=== PATIENT | male | born 1980 | race Caucasian/White ===

== ENCOUNTER → 2016-12-10 | Outpatient (CLI) | payer BC ==
[~2016-12-10] VITALS: Ht 180.3 cm; Wt 59.0 kg
[~2016-12-10] MED LIST: ATIVAN0.5 MG PO; BENADRYL25 MG PO; BUSPAR10 MG PO; CATAPRES0.2 MG PO; CIPRO500 MG PO; CLONAZEPAM1 MG PO; CLONIDINE HCL0.1 MG PO; DURAGESIC75 MCG TD; FISH OIL300 MG PO; FLAGYL500 MG PO; IBUPROFEN600 MG PO; INDERAL40 MG PO; KLONOPIN1 MG PO; LANSOPRAZOLE30 MG PO; LIBRIUM25 MG PO; MARINOL2.5 M1 PO; NORCO 5/3251 TABLET PO; OXYCODONE HCL10 MG PO; PREVACID30 MG PO; TRAZODONE HCL100 MG PO; TYLENOL EXTRA500 MG PO; XARELTO10 MG PO; ZESTORETIC,P1 TABLET PO; ZOFRAN8 MG PO
== END | disposition home or self-care (01) ==
LOC: AMB 12-07 11:30
PROC: 0DBE8ZX Excision of Large Intestine, Via Natural or Artificial Opening Endoscopic, Diagnostic (ICD-10-PCS; principal; 2016-12-10)
DX: Z09 Encounter for follow-up examination after completed treatment for conditions other than malignant neoplasm (principal); Z93.3 Colostomy status; Z87.19 Personal history of other diseases of the digestive system; K62.1 Rectal polyp; K21.9 Gastro-esophageal reflux disease without esophagitis; Z87.891 Personal history of nicotine dependence; I10 Essential (primary) hypertension; F41.9 Anxiety disorder, unspecified; F10.10 Alcohol abuse, uncomplicated
CPT/HCPCS: 88305; B4087; J2250; J3010

== ENCOUNTER 2017-04-10 05:19 | Observation (INO) | payer BC ==
[~2017-04-10] VITALS: Ht 182.9 cm; Wt 61.3 kg
[2017-04-10 06:02] LABS: EOSINOPHIL (%) 1.6 % (0-5); EOSINOPHIL COUNT 0.1 K/uL (0-0.3); HEMATOCRIT 37.4 % (38.0-50.0); IMMATURE GRANULOCYTE (%) 0.2 % (0.0-0.7); INSTRUMENT ABS NEUTROPHIL CT 3.8 K/uL; LYMPHOCYTE COUNT 1.2 K/uL (1.0-2.8); MCH 31.3 PG (29.0-34.0); MCHC 36.1 G/DL (30.0-36.0); MEAN PLAT.VOLUME 10.2 uM^3 (9.0-12.4); MONOCYTE (%) 7.7 % (3-12); MONOCYTE COUNT 0.4 K/uL (0-0.8); NEUTROPHIL (%) 68.6 % (45-76); NEUTROPHIL COUNT 3.8 K/uL (1.8-6.4); PLATELET COUNT 181 K/uL (156-360); RBC DIS.WIDTH-CV 11.9 % (11.8-14.6); RBC DIS.WIDTH-SD 38.1 % (39-53); RED BLOOD COUNT 4.31 M/uL (4.00-5.50); WHITE BLOOD COUNT 5.5 K/uL (4.1-10.2)
[2017-04-10 06:11] LABS: CHLORIDE 106 mEq/L (99-109); POTASSIUM 3.8 mEq/L (3.7-5.4); SODIUM 139 mEq/L (136-147)
[2017-04-10 06:13] LABS: GLUCOSE 114 mg/dL (70-99)
[2017-04-10 06:14] LABS: ANION GAP 11 MEQ/L (2-14)
[2017-04-10 06:15] LABS: TOTAL BILIRUBIN 0.7 mg/dL (0.0-1.0)
[2017-04-10 06:16] LABS: ALKALINE PHOSPHATASE 83 IU/L (3-129)
[2017-04-10 06:17] LABS: GFR ESTIMATE (CALCULATED) > 59 mL/min/
[2017-04-10 06:18] LABS: MCV 86.8 FL (86-99); UREA NITROGEN (BUN) 11 mg/dL (9-23)
[2017-04-10 06:20] LABS: INTER. NORMALIZED RATIO 1.2; PROTHROMBIN TIME 12.2 (9.2-11.2); PTT 28.3 (25-32)
[2017-04-10 06:20] LABS: LIPASE 6 U/L (1.0-51.0)
[2017-04-10 07:55] LABS: SERUM ETHYL ALCOHOL < 10 mg/dL
[2017-04-10] MEDS ORDERED: CLONIDINE HCL0.2 MG PO (11:47)
[2017-04-10] MEDS ORDERED: VITAMIN D31000 UNI2 PO (11:48)
[2017-04-10] MEDS ORDERED: ASCORBIC ACID500 M3 PO (11:48)
[2017-04-10 13:30] VITALS: BP 115/78
[2017-04-10 14:04] LABS: AMYLASE 37 IU/L (1-118); SAMPLE HEMOLYSIS CHECK 0; SAMPLE ICTERIC CHECK 0; SAMPLE LIPEMIA CHECK 0
[2017-04-10 17:16] VITALS: BP 118/73
[2017-04-10 23:39] VITALS: BP 111/59
[2017-04-11 05:33] LABS: HEMATOCRIT 34.2 % (38.0-50.0); MCH 30.3 PG (29.0-34.0); MCHC 33.6 G/DL (30.0-36.0); MEAN PLAT.VOLUME 10.2 uM^3 (9.0-12.4); PLATELET COUNT 141 K/uL (156-360); RBC DIS.WIDTH-CV 12.2 % (11.8-14.6); RBC DIS.WIDTH-SD 39.8 % (39-53); WHITE BLOOD COUNT 5.3 K/uL (4.1-10.2)
[2017-04-11 07:48] VITALS: BP 115/79
== END 2017-04-11 10:23 | disposition home or self-care (01) ==
LOC: EME 05:19 → EDOF 10:25 → 3EAST 10:25 → EDOF 10:25 → 3EAST 13:13
PROVIDERS: Emergency Medicine; Specialist
DX: K92.2 Gastrointestinal hemorrhage, unspecified (principal); R10.9 Unspecified abdominal pain; K21.9 Gastro-esophageal reflux disease without esophagitis; Z87.891 Personal history of nicotine dependence; F41.9 Anxiety disorder, unspecified; E44.0 Moderate protein-calorie malnutrition; R13.10 Dysphagia, unspecified; E78.5 Hyperlipidemia, unspecified; I10 Essential (primary) hypertension; I47.1 Supraventricular tachycardia; Z93.0 Tracheostomy status; Z93.2 Ileostomy status; F11.20 Opioid dependence, uncomplicated
CPT/HCPCS: 74177; 76705; 80053; 82150; 83690; 85025; 85027; 85610; 85730; 86900; 86901; 99281; 99285; C9113; G0378; G0480; J2270; J2405; J3010; J7030

== ENCOUNTER 2017-06-06 00:48 | Inpatient (IN) | payer BC ==
[~2017-06-06] VITALS: Ht 182.9 cm; Wt 64.0 kg
[~2017-06-06 00:48] MED LIST changes: +ASCORBIC ACID500 M3 PO; +CLONIDINE HCL0.2 MG PO; +VITAMIN D31000 UNI2 PO
[2017-06-06 01:53] LABS: HEMATOCRIT 35.3 % (38.0-50.0); MCH 31.1 PG (29.0-34.0); MCHC 34.8 G/DL (30.0-36.0); MCV 89.4 FL (86-99); MEAN PLAT.VOLUME 9.7 uM^3 (9.0-12.4); PLATELET COUNT 155 K/uL (156-360); RBC DIS.WIDTH-CV 12.2 % (11.8-14.6); RBC DIS.WIDTH-SD 40.1 % (39-53); RED BLOOD COUNT 3.95 M/uL (4.00-5.50); WHITE BLOOD COUNT 8.8 K/uL (4.1-10.2)
[2017-06-06 01:58] LABS: EOSINOPHIL (%) 2.7 % (0-5); EOSINOPHIL COUNT 0.2 K/uL (0-0.3); IMMATURE GRANULOCYTE (%) 0.4 % (0.0-0.7); INSTRUMENT ABS NEUTROPHIL CT 6.7 K/uL; LYMPHOCYTE COUNT 1.2 K/uL (1.0-2.8); MONOCYTE (%) 8.1 % (3-12); MONOCYTE COUNT 0.7 K/uL (0-0.8); NEUTROPHIL (%) 74.8 % (45-76); NEUTROPHIL COUNT 6.7 K/uL (1.8-6.4)
[2017-06-06 02:00] LABS: ADD MIUA? NO; BILIRUBIN NEGATIVE; BLOOD NEGATIVE; COLOR YELLOW ((YELLOW)); GLUCOSE (STRIP) NEGATIVE; KETONES NEGATIVE; LEUKOCYTES NEGATIVE; NITRITE NEGATIVE; PROTEIN (STRIP) 30; SPECIFIC GRAVITY 1.025 (1.000-1.030); UCUL ADDED? NO; UROBILINOGEN 0.2 MG/DL (0.2-1.0)
[2017-06-06 02:10] LABS: CHLORIDE 104 mEq/L (99-109); POTASSIUM 3.7 mEq/L (3.7-5.4); SODIUM 136 mEq/L (136-147)
[2017-06-06 02:12] LABS: GLUCOSE 97 mg/dL (70-99)
[2017-06-06 02:14] LABS: ANION GAP 9 MEQ/L (2-14); TOTAL BILIRUBIN 0.2 mg/dL (0.0-1.0)
[2017-06-06 02:16] LABS: ALKALINE PHOSPHATASE 75 IU/L (3-129); GFR ESTIMATE (CALCULATED) > 59 mL/min/
[2017-06-06 02:17] LABS: UREA NITROGEN (BUN) 22 mg/dL (9-23)
[2017-06-06 02:19] LABS: LIPASE 837 U/L (1.0-51.0)
[2017-06-06 06:02] VITALS: BP 134/87
[2017-06-06 08:42] VITALS: BP 132/83
[2017-06-06 11:59] VITALS: BP 131/83
[2017-06-06] MEDS ORDERED: DURAGESIC50 MCG TD (12:55)
[2017-06-06 17:23] VITALS: BP 133/86
[2017-06-06 19:59] VITALS: BP 119/80
[2017-06-06 23:37] VITALS: BP 123/79
[2017-06-06 23:41] LABS: SAMPLE HEMOLYSIS CHECK 0; SAMPLE ICTERIC CHECK 0; SAMPLE LIPEMIA CHECK 0
[2017-06-06 23:47] LABS: TRIGLYCERIDES 116 MG/DL (Normal: <150)
[2017-06-07 04:56] VITALS: BP 133/83
[2017-06-07 06:42] LABS: EOSINOPHIL COUNT 0.2 K/uL (0-0.3); HEMATOCRIT 35.5 % (38.0-50.0); IMMATURE GRANULOCYTE (%) 0.8 % (0.0-0.7); IMMATURE GRANULOCYTE COUNT 0.1 K/uL; INSTRUMENT ABS NEUTROPHIL CT 5.1 K/uL; LYMPHOCYTE COUNT 0.7 K/uL (1.0-2.8); MCH 31.8 PG (29.0-34.0); MCHC 35.2 G/DL (30.0-36.0); MCV 90.3 FL (86-99); MONOCYTE (%) 7.5 % (3-12); MONOCYTE COUNT 0.5 K/uL (0-0.8); NEUTROPHIL (%) 77.3 % (45-76); NEUTROPHIL COUNT 5.1 K/uL (1.8-6.4); RBC DIS.WIDTH-CV 12.2 % (11.8-14.6); RBC DIS.WIDTH-SD 40.2 % (39-53); RED BLOOD COUNT 3.93 M/uL (4.00-5.50); WHITE BLOOD COUNT 6.6 K/uL (4.1-10.2)
[2017-06-07 06:52] LABS: ALKALINE PHOSPHATASE 85 IU/L (3-129); ANION GAP 13 MEQ/L (2-14); CHLORIDE 104 MEQ/L (99-109); GFR ESTIMATE (CALCULATED) > 59 mL/min/; GLUCOSE 65 mg/dL (70-99); LIPASE 426 U/L (1.0-51.0); POTASSIUM 3.7 MEQ/L (3.7-5.4); SAMPLE HEMOLYSIS CHECK 1; SAMPLE ICTERIC CHECK 0; SAMPLE LIPEMIA CHECK 0; SODIUM 138 MEQ/L (136-147); TOTAL BILIRUBIN 0.8 MG/DL (0.0-1.0); UREA NITROGEN (BUN) 10 mg/dL (9-23)
[2017-06-07 08:07] VITALS: BP 133/88
[2017-06-07 08:47] LABS: HEMATOLOGY COMMENT 1 SMEAR COMPATIBLE; MEAN PLAT.VOLUME 10.2 uM^3 (9.0-12.4); PLAT.SUFFICIENCY DECREASED
[2017-06-07 08:52] LABS: PLATELET COUNT 107 K/uL (156-360)
[2017-06-07 11:54] VITALS: BP 137/92
[2017-06-07 16:19] VITALS: BP 140/93
[2017-06-07 19:53] VITALS: BP 147/89
[2017-06-07 23:41] VITALS: BP 146/92
[2017-06-08 03:53] VITALS: BP 142/86
[2017-06-08 06:37] LABS: MCH 30.9 PG (29.0-34.0); MCHC 34.9 G/DL (30.0-36.0); MCV 88.6 FL (86-99); MEAN PLAT.VOLUME 9.7 uM^3 (9.0-12.4); PLATELET COUNT 113 K/uL (156-360); RBC DIS.WIDTH-CV 11.9 % (11.8-14.6); RBC DIS.WIDTH-SD 38.2 % (39-53); RED BLOOD COUNT 3.95 M/uL (4.00-5.50); WHITE BLOOD COUNT 7.9 K/uL (4.1-10.2)
[2017-06-08 08:01] VITALS: BP 142/89
[2017-06-08 16:30] VITALS: BP 133/88
[2017-06-08 20:09] VITALS: BP 134/88
[2017-06-09 00:21] VITALS: BP 132/87
[2017-06-09 03:54] VITALS: BP 123/81
[2017-06-09 06:35] LABS: HEMATOCRIT 32.9 % (38.0-50.0); MCH 31.9 PG (29.0-34.0); MCHC 35.9 G/DL (30.0-36.0); MCV 88.9 FL (86-99); PLATELET COUNT 113 K/uL (156-360); RBC DIS.WIDTH-CV 12.1 % (11.8-14.6); RBC DIS.WIDTH-SD 38.9 % (39-53); WHITE BLOOD COUNT 3.7 K/uL (4.1-10.2)
[2017-06-09 07:07] LABS: ALKALINE PHOSPHATASE 92 IU/L (3-129); DIRECT BILIRUBIN 0.1 mg/dL (0.0-0.3); LIPASE 362 U/L (1.0-51.0)
[2017-06-09 07:10] LABS: TOTAL BILIRUBIN 0.4 MG/DL (0.0-1.0)
== END 2017-06-09 07:26 | disposition short-term general hospital (02) | DRG 439 ==
LOC: EME 00:48 → 3EAST 04:18 → EDOF 04:18 → 3EAST 05:47
PROVIDERS: Internal Medicine Gastroenterology; Specialist
DX: K85.90 Acute pancreatitis without necrosis or infection, unspecified (principal); I95.9 Hypotension, unspecified; E44.0 Moderate protein-calorie malnutrition; D69.6 Thrombocytopenia, unspecified; R18.8 Other ascites; F11.20 Opioid dependence, uncomplicated; Z86.74 Personal history of sudden cardiac arrest; D64.9 Anemia, unspecified; M25.511 Pain in right shoulder; E78.5 Hyperlipidemia, unspecified; G89.29 Other chronic pain; F41.9 Anxiety disorder, unspecified; I10 Essential (primary) hypertension; I25.10 Atherosclerotic heart disease of native coronary artery without angina pectoris; K21.9 Gastro-esophageal reflux disease without esophagitis; K43.9 Ventral hernia without obstruction or gangrene; K80.10 Calculus of gallbladder with chronic cholecystitis without obstruction; K86.1 Other chronic pancreatitis; R13.10 Dysphagia, unspecified; Z68.1 Body mass index [BMI] 19.9 or less, adult; Z87.891 Personal history of nicotine dependence; Z79.899 Other long term (current) drug therapy; R10.11 Right upper quadrant pain; R63.0 Anorexia; Z93.2 Ileostomy status
CPT/HCPCS: 74177; 76705; 80053; 80076; 81003; 83690; 84478; 85025; 85027; 99281; 99285; C9113; J0692; J1170; J1650; J2060; J2270; J2405; J2765; J7030; J7050

== ENCOUNTER 2017-07-25 17:03 | Inpatient (IN) | payer BC ==
[~2017-07-25] VITALS: Ht 182.9 cm; Wt 69.6 kg
[~2017-07-25 17:03] MED LIST changes: +DURAGESIC50 MCG TD; -OXYCODONE HCL10 MG PO; +OXYCODONE HCL20 M1 PO; +ZOFRAN4 MG PO; -ZOFRAN8 MG PO
[2017-07-25 17:51] LABS: EOSINOPHIL (%) 2.9 % (0-5); EOSINOPHIL COUNT 0.4 K/uL (0-0.3); HEMATOCRIT 25.1 % (38.0-50.0); IMMATURE GRANULOCYTE (%) 0.4 % (0.0-0.7); IMMATURE GRANULOCYTE COUNT 0.1 K/uL; INSTRUMENT ABS NEUTROPHIL CT 11.3 K/uL; LYMPHOCYTE COUNT 0.8 K/uL (1.0-2.8); MCH 28.8 PG (29.0-34.0); MCHC 32.3 G/DL (30.0-36.0); MCV 89.3 FL (86-99); MEAN PLAT.VOLUME 8.8 uM^3 (9.0-12.4); MONOCYTE (%) 7.8 % (3-12); MONOCYTE COUNT 1.1 K/uL (0-0.8); NEUTROPHIL COUNT 11.3 K/uL (1.8-6.4); PLATELET COUNT 336 K/uL (156-360); RBC DIS.WIDTH-CV 14.9 % (11.8-14.6); RBC DIS.WIDTH-SD 49.1 % (39-53); RED BLOOD COUNT 2.81 M/uL (4.00-5.50); WHITE BLOOD COUNT 13.6 K/uL (4.1-10.2)
[2017-07-25 17:58] LABS: CHLORIDE 102 mEq/L (99-109); POTASSIUM 3.6 mEq/L (3.7-5.4); SODIUM 139 mEq/L (136-147)
[2017-07-25 18:01] LABS: GLUCOSE 105 mg/dL (70-99)
[2017-07-25 18:02] LABS: ANION GAP 10 MEQ/L (2-14)
[2017-07-25 18:03] LABS: TOTAL BILIRUBIN 0.2 mg/dL (0.0-1.0)
[2017-07-25 18:04] LABS: ALKALINE PHOSPHATASE 152 IU/L (3-129); GFR ESTIMATE (CALCULATED) > 59 mL/min/
[2017-07-25 18:05] LABS: UREA NITROGEN (BUN) 9 mg/dL (9-23)
[2017-07-25] MEDS ORDERED: DIAZEPAM2 MG PO (22:26)
[2017-07-25] MEDS ORDERED: CIPRO500 MG PO (22:27)
[2017-07-25] MEDS ORDERED: NYSTATIN-TRIAMC15 GM TP (22:27)
[2017-07-26 00:32] VITALS: BP 108/65
[2017-07-26 02:18] LABS: METH RESISTANT S AUREUS PCR POSITIVE (NEGATIVE)
[2017-07-26 02:46] LABS: PROBE CHECK PASS
[2017-07-26 06:24] LABS: EOSINOPHIL (%) 3.4 % (0-5); EOSINOPHIL COUNT 0.4 K/uL (0-0.3); HEMATOCRIT 23.1 % (38.0-50.0); IMMATURE GRANULOCYTE (%) 0.5 % (0.0-0.7); IMMATURE GRANULOCYTE COUNT 0.1 K/uL; INSTRUMENT ABS NEUTROPHIL CT 8.8 K/uL; LYMPHOCYTE COUNT 0.7 K/uL (1.0-2.8); MCHC 30.7 G/DL (30.0-36.0); MCV 90.9 FL (86-99); MEAN PLAT.VOLUME 9.3 uM^3 (9.0-12.4); MONOCYTE (%) 7.9 % (3-12); MONOCYTE COUNT 0.9 K/uL (0-0.8); NEUTROPHIL (%) 81.7 % (45-76); NEUTROPHIL COUNT 8.8 K/uL (1.8-6.4); PLATELET COUNT 298 K/uL (156-360); RBC DIS.WIDTH-CV 15.3 % (11.8-14.6); RBC DIS.WIDTH-SD 51.8 % (39-53); RED BLOOD COUNT 2.54 M/uL (4.00-5.50); WHITE BLOOD COUNT 10.7 K/uL (4.1-10.2)
[2017-07-26 06:52] LABS: ANION GAP 9 MEQ/L (2-14); CHLORIDE 110 MEQ/L (99-109); GFR ESTIMATE (CALCULATED) > 59 mL/min/; GLUCOSE 104 mg/dL (70-99); POTASSIUM 3.5 MEQ/L (3.7-5.4); SAMPLE HEMOLYSIS CHECK 0; SAMPLE ICTERIC CHECK 0; SAMPLE LIPEMIA CHECK 0; SODIUM 143 MEQ/L (136-147); UREA NITROGEN (BUN) 6 mg/dL (9-23)
[2017-07-26 07:27] VITALS: BP 98/60
[2017-07-26 08:26] LABS: INTER. NORMALIZED RATIO 1.4; PROTHROMBIN TIME 15.1 SEC (10.2-12.9)
[2017-07-26 08:29] LABS: PTT 43.8 SEC (25-37)
[2017-07-26 11:38] VITALS: BP 112/62
== END 2017-07-26 13:19 | disposition short-term general hospital (02) | DRG 863 ==
LOC: EME 17:03 → EDOF 21:46 → ENRESERV 22:06 → 5EAST 07-26 00:13
PROVIDERS: Family Medicine; Physician Assistant; Radiology Diagnostic Radiology
DX: K68.11 Postprocedural retroperitoneal abscess (principal); I10 Essential (primary) hypertension; D64.9 Anemia, unspecified; K21.9 Gastro-esophageal reflux disease without esophagitis; F41.9 Anxiety disorder, unspecified; G89.29 Other chronic pain; Z90.49 Acquired absence of other specified parts of digestive tract
CPT/HCPCS: 74177; 80048; 80053; 81003; 83605; 85025; 85610; 85730; 87040; 87641; 99281; 99285; J1200; J2270; J2405; J2543; J3010; J7030; J7050; S0030

== ENCOUNTER 2017-09-18 20:58 | Inpatient (IN) | payer BC ==
[~2017-09-18] VITALS: Ht 182.9 cm; Wt 56.5 kg
[~2017-09-18 20:58] MED LIST changes: +DIAZEPAM2 MG PO; +NYSTATIN-TRIAMC15 GM TP
[2017-09-18 21:34] LABS: HEMATOCRIT 44.9 % (38.0-50.0); MCH 28.3 PG (29.0-34.0); MEAN PLAT.VOLUME 8.9 uM^3 (9.0-12.4); PLATELET COUNT 343 K/uL (156-360); RBC DIS.WIDTH-CV 14.2 % (11.8-14.6); RBC DIS.WIDTH-SD 41.1 % (39-53); RED BLOOD COUNT 5.54 M/uL (4.00-5.50); WHITE BLOOD COUNT 9.4 K/uL (4.1-10.2)
[2017-09-18 21:42] LABS: CHLORIDE 96 mEq/L (99-109); POTASSIUM 4.1 mEq/L (3.7-5.4); SODIUM 136 mEq/L (136-147)
[2017-09-18 21:45] LABS: GLUCOSE 113 mg/dL (70-99)
[2017-09-18 21:46] LABS: ANION GAP 22 MEQ/L (2-14)
[2017-09-18 21:47] LABS: TOTAL BILIRUBIN 0.6 mg/dL (0.0-1.0)
[2017-09-18 21:48] LABS: ALKALINE PHOSPHATASE 195 IU/L (3-129); GFR ESTIMATE (CALCULATED) > 59 mL/min/
[2017-09-18 21:49] LABS: UREA NITROGEN (BUN) 19 mg/dL (9-23)
[2017-09-18 21:52] LABS: LIPASE 15 U/L (1.0-51.0)
[2017-09-19] MEDS ORDERED: CLONIDINE HCL0.2 MG PO (01:06)
[2017-09-19] MEDS ORDERED: TIZANIDINE HCL4 MG PO (01:06)
[2017-09-19] MEDS ORDERED: FLINTSTONES1 EACH PO (01:07)
[2017-09-19] MEDS ORDERED: DRONABINOL2.5 MG PO (01:07)
[2017-09-19] MEDS ORDERED: TUMS500 MG PO (01:08)
[2017-09-19 15:10] LABS: INFLUENZA A VIRAL ANTIGEN NEGATIVE; INFLUENZA B VIRAL ANTIGEN NEGATIVE
[2017-09-19 15:50] LABS: METH RESISTANT S AUREUS PCR NEGATIVE (NEGATIVE)
[2017-09-19 15:53] LABS: PROBE CHECK PASS; SPECIMEN PROCESSING CONTROL PASS
[2017-09-19 16:20] VITALS: BP 128/84
[2017-09-19 20:18] VITALS: BP 134/84
[2017-09-20 00:05] VITALS: BP 120/78
[2017-09-20 04:30] VITALS: BP 114/69
[2017-09-20 06:09] LABS: C DIFF TOXIN NEGATIVE (NEGATIVE)
[2017-09-20 06:11] LABS: PROBE CHECK PASS; SPECIMEN PROCESSING CONTROL PASS
[2017-09-20 07:10] LABS: ALKALINE PHOSPHATASE 113 IU/L (3-129); DIRECT BILIRUBIN 0.1 mg/dL (0.0-0.3); TOTAL BILIRUBIN 0.3 MG/DL (0.0-1.0)
[2017-09-20 08:25] VITALS: BP 128/82
[2017-09-20 09:50] LABS: HEMATOCRIT 35.7 % (38.0-50.0); MCH 29.2 PG (29.0-34.0); MCHC 33.9 G/DL (30.0-36.0); RBC DIS.WIDTH-CV 14.6 % (11.8-14.6); RBC DIS.WIDTH-SD 43.9 % (39-53); WHITE BLOOD COUNT 6.7 K/uL (4.1-10.2)
[2017-09-20 09:54] LABS: RED BLOOD COUNT 4.15 M/uL (4.00-5.50)
[2017-09-20 09:54] LABS: ANION GAP 12 MEQ/L (2-14); CHLORIDE 105 MEQ/L (99-109); GLUCOSE 102 mg/dL (70-99); SODIUM 138 MEQ/L (136-147); UREA NITROGEN (BUN) 6 mg/dL (9-23)
[2017-09-20 10:05] LABS: GFR ESTIMATE (CALCULATED) > 59 mL/min/; POTASSIUM 3.2 MEQ/L (3.7-5.4)
[2017-09-20 10:12] LABS: MEAN PLAT.VOLUME 10.2 uM^3 (9.0-12.4)
[2017-09-20 10:16] LABS: PLATELET COUNT 179 K/uL (156-360)
[2017-09-20 23:58] VITALS: BP 118/74
[2017-09-21 08:39] VITALS: BP 133/93
[2017-09-21 11:28] VITALS: BP 133/84
[2017-09-21] MEDS ORDERED: CEFTIN500 MG PO (12:38)
[2017-09-21] MEDS ORDERED: METRONIDAZOLE500 MG PO (12:39)
[2017-09-21] MEDS ORDERED: AZITHROMYCIN500 M1 PO (12:39)
[2017-09-21] MEDS ORDERED: BENTYL20 MG PO (12:39)
[2017-09-21] MEDS ORDERED: CHOLESTYRAMINE P4 GM PO (12:40)
[2017-09-21] MEDS ORDERED: CLONIDINE HCL0.1 MG PO (12:41)
[2017-09-21] MEDS ORDERED: LOPERAMIDE2 MG PO (12:43)
[2017-09-21] MEDS ORDERED: PANTOPRAZOLE SO40 MG PO (12:44)
[2017-09-21] MEDS ORDERED: DIAZEPAM5 MG PO (12:44)
[2017-09-27 09:01] LABS: RESEND RESULTS RESEND RESULTS
== END 2017-09-21 14:26 | disposition home or self-care (01) | DRG 194 ==
LOC: EME 20:58 → EDOF 09-19 02:10 → 3EAST 09-19 02:10 → ENRESERV 09-19 02:18 → 3EAST 09-19 12:58
PROVIDERS: Family Medicine; Physician Assistant; Specialist
DX: J18.9 Pneumonia, unspecified organism (principal); K91.2 Postsurgical malabsorption, not elsewhere classified; K86.1 Other chronic pancreatitis; R13.10 Dysphagia, unspecified; Z68.1 Body mass index [BMI] 19.9 or less, adult; K52.9 Noninfective gastroenteritis and colitis, unspecified; K21.0 Gastro-esophageal reflux disease with esophagitis; G89.4 Chronic pain syndrome; I10 Essential (primary) hypertension; F41.9 Anxiety disorder, unspecified; R79.89 Other specified abnormal findings of blood chemistry; E78.5 Hyperlipidemia, unspecified; K29.70 Gastritis, unspecified, without bleeding; I25.10 Atherosclerotic heart disease of native coronary artery without angina pectoris; F10.11 Alcohol abuse, in remission; Z90.49 Acquired absence of other specified parts of digestive tract; Z86.73 Personal history of transient ischemic attack (TIA), and cerebral infarction without residual deficits
CPT/HCPCS: 71020; 74177; 80048; 80053; 80076; 83605; 83690; 85027; 87040; 87046; 87177; 87329; 87493; 87502; 87506; 87641; 88305; 88342 TC; 89125; 90686; 94640; 94640 76; 99202; 99281; 99285; C9113; J1170; J1200; J1956; J2250; J2270; J2405; J2765; J3010; J7030; J7050; Q0167; S0028

== ENCOUNTER 2017-10-06 18:15 | Inpatient (IN) | payer BC ==
[~2017-10-06] VITALS: Ht 182.9 cm; Wt 56.1 kg
[~2017-10-06 18:15] MED LIST changes: +AZITHROMYCIN500 M1 PO; +BENTYL20 MG PO; +CEFTIN500 MG PO; +CHOLESTYRAMINE P4 GM PO; +DIAZEPAM5 MG PO; +DRONABINOL2.5 MG PO; +FLINTSTONES1 EACH PO; +LOPERAMIDE2 MG PO; +METRONIDAZOLE500 MG PO; +PANTOPRAZOLE SO40 MG PO; +TIZANIDINE HCL4 MG PO; +TUMS500 MG PO
[2017-10-06 19:15] LABS: HEMATOCRIT 41.5 % (38.0-50.0); MCH 28.3 PG (29.0-34.0); MCHC 33.7 G/DL (30.0-36.0); MCV 83.8 FL (86-99); MEAN PLAT.VOLUME 9.6 uM^3 (9.0-12.4); PLATELET COUNT 173 K/uL (156-360); RBC DIS.WIDTH-CV 15.3 % (11.8-14.6); RBC DIS.WIDTH-SD 46.5 % (39-53); RED BLOOD COUNT 4.95 M/uL (4.00-5.50)
[2017-10-06 19:24] LABS: CHLORIDE 101 mEq/L (99-109); POTASSIUM 3.6 mEq/L (3.7-5.4); SODIUM 138 mEq/L (136-147)
[2017-10-06 19:26] LABS: GLUCOSE 102 mg/dL (70-99)
[2017-10-06 19:27] LABS: ANION GAP 13 MEQ/L (2-14)
[2017-10-06 19:28] LABS: TOTAL BILIRUBIN 0.7 mg/dL (0.0-1.0)
[2017-10-06 19:30] LABS: ALKALINE PHOSPHATASE 115 IU/L (3-129); GFR ESTIMATE (CALCULATED) > 59 mL/min/
[2017-10-06 19:31] LABS: UREA NITROGEN (BUN) 10 mg/dL (9-23)
[2017-10-06 19:32] LABS: ADD MIUA? YES; BILIRUBIN NEGATIVE; BLOOD NEGATIVE; COLOR YELLOW ((YELLOW)); GLUCOSE (STRIP) NEGATIVE; KETONES 20; LEUKOCYTES NEGATIVE; NITRITE NEGATIVE; PROTEIN (STRIP) 30; SPECIFIC GRAVITY 1.019 (1.000-1.030); UROBILINOGEN 0.2 MG/DL (0.2-1.0)
[2017-10-06 19:33] LABS: LIPASE 4 U/L (1.0-51.0)
[2017-10-06 19:38] LABS: BACTERIA RARE /HPF; CALCIUM OXALATE CRYSTALS 2+ /HPF; HYALINE CASTS 0-5 /LPF
[2017-10-06 20:04] LABS: RED BLOOD CELLS RARE /HPF (0-5); UCUL ADDED? NO; WHITE BLOOD CELLS 0-5 /HPF (0-5)
[2017-10-06 20:05] LABS: EPITHELIAL CELLS RARE /HPF; MUCUS 3+ /LPF
[2017-10-06 20:06] LABS: CASTS PRESENT /LPF; CRYSTALS PRESENT
[2017-10-06] MEDS ORDERED: OXYCODONE HCL10 MG PO (23:10)
[2017-10-06] MEDS ORDERED: PROTONIX40 MG PO (23:10)
[2017-10-07] VITALS (7 sets, daily range): BP systolic 109–135; BP diastolic 65–95
[2017-10-07] MEDS ORDERED: VALIUM5 MG PO (00:53)
[2017-10-08 03:55] LABS: C DIFF TOXIN NEGATIVE (NEGATIVE)
[2017-10-08 03:57] LABS: PROBE CHECK PASS; SPECIMEN PROCESSING CONTROL PASS
[2017-10-08 07:30] LABS: TROP-I INTERPRETATION NEGATIVE; TROPONIN-I < 0.01 ng/mL (0.0-0.30)
[2017-10-08 07:37] LABS: HEMATOCRIT 35.4 % (38.0-50.0); HEMATOLOGY COMMENT 1 SN; MCHC 33.1 G/DL (30.0-36.0); MCV 84.7 FL (86-99); MEAN PLAT.VOLUME 9.1 uM^3 (9.0-12.4); PLAT.SUFFICIENCY DECREASED; RBC DIS.WIDTH-CV 15.1 % (11.8-14.6); RBC DIS.WIDTH-SD 46.5 % (39-53); RED BLOOD COUNT 4.18 M/uL (4.00-5.50); WHITE BLOOD COUNT 2.6 K/uL (4.1-10.2)
[2017-10-08 07:39] LABS: PLATELET COUNT 103 K/uL (156-360)
[2017-10-08 07:44] LABS: ALKALINE PHOSPHATASE 104 IU/L (3-129); ANION GAP 7 MEQ/L (2-14); CHLORIDE 107 MEQ/L (99-109); GFR ESTIMATE (CALCULATED) > 59 mL/min/; GLUCOSE 94 mg/dL (70-99); POTASSIUM 3.7 MEQ/L (3.7-5.4); SAMPLE HEMOLYSIS CHECK 0; SAMPLE ICTERIC CHECK 0; SAMPLE LIPEMIA CHECK 0; SODIUM 137 MEQ/L (136-147); TOTAL BILIRUBIN 0.4 MG/DL (0.0-1.0); UREA NITROGEN (BUN) 8 mg/dL (9-23)
[2017-10-08 07:45] LABS: ANION GAP 9 MEQ/L (2-14); CHLORIDE 106 MEQ/L (99-109); GFR ESTIMATE (CALCULATED) > 59 mL/min/; GLUCOSE 96 mg/dL (70-99); POTASSIUM 3.7 MEQ/L (3.7-5.4); SAMPLE HEMOLYSIS CHECK 0; SAMPLE ICTERIC CHECK 0; SAMPLE LIPEMIA CHECK 0; SODIUM 137 MEQ/L (136-147); UREA NITROGEN (BUN) 9 mg/dL (9-23)
[2017-10-08 08:45] VITALS: BP 122/86
[2017-10-08 23:19] VITALS: BP 92/56
[2017-10-09 08:09] VITALS: BP 94/59
[2017-10-09 15:39] VITALS: BP 98/62
[2017-10-09 23:26] VITALS: BP 115/56
[2017-10-10 08:28] LABS: HEMATOCRIT 37.1 % (38.0-50.0); MCH 28.2 PG (29.0-34.0); MCHC 32.3 G/DL (30.0-36.0); MCV 87.1 FL (86-99); MEAN PLAT.VOLUME 10.1 uM^3 (9.0-12.4); PLATELET COUNT 125 K/uL (156-360); RBC DIS.WIDTH-CV 15.4 % (11.8-14.6); RBC DIS.WIDTH-SD 48.5 % (39-53); RED BLOOD COUNT 4.26 M/uL (4.00-5.50); WHITE BLOOD COUNT 2.7 K/uL (4.1-10.2)
[2017-10-10 08:30] VITALS: BP 88/62
[2017-10-10 09:13] LABS: EOSINOPHIL (%) 6.4 % (0-5); EOSINOPHIL COUNT 0.2 K/uL (0-0.3); IMMATURE GRANULOCYTE (%) 0.4 % (0.0-0.7); INSTRUMENT ABS NEUTROPHIL CT 1.3 K/uL; LYMPHOCYTE COUNT 0.9 K/uL (1.0-2.8); MONOCYTE (%) 7.9 % (3-12); MONOCYTE COUNT 0.2 K/uL (0-0.8); NEUTROPHIL (%) 50.2 % (45-76); NEUTROPHIL COUNT 1.3 K/uL (1.8-6.4)
[2017-10-10 09:38] LABS: ERTH.SED.RATE 12 MM/HR (0-15)
[2017-10-10 15:16] VITALS: BP 100/64; BP 137/62
[2017-10-10 20:18] VITALS: BP 102/59
[2017-10-11 00:09] VITALS: BP 104/64
[2017-10-11] MEDS ORDERED: METRONIDAZOLE500 MG PO (00:10)
[2017-10-11] MEDS ORDERED: TYLENOL REGULA325 MG PO (00:11)
[2017-10-11] MEDS ORDERED: DELZICOL400 M1 PO (00:14)
[2017-10-11] MEDS ORDERED: HYDROMORPHONE HC2 MG PO (00:14)
[2017-10-11 06:34] LABS: ANION GAP 6 MEQ/L (2-14); CHLORIDE 106 MEQ/L (99-109); GFR ESTIMATE (CALCULATED) > 59 mL/min/; GLUCOSE 92 mg/dL (70-99); SAMPLE HEMOLYSIS CHECK 0; SAMPLE ICTERIC CHECK 0; SAMPLE LIPEMIA CHECK 0; SODIUM 138 MEQ/L (136-147); UREA NITROGEN (BUN) 9 mg/dL (9-23)
[2017-10-11 06:35] LABS: POTASSIUM 4.5 MEQ/L (3.7-5.4)
[2017-10-11 08:42] VITALS: BP 106/64
== END 2017-10-11 11:17 | disposition home or self-care (01) | DRG 391 ==
LOC: EME 18:15 → EDOF 23:00 → 3EAST 23:00 → ENRESERV 23:18 → 3EAST 10-07 00:20
PROVIDERS: Emergency Medicine; Family Medicine; Internal Medicine Cardiovascular Disease; Specialist
DX: K52.9 Noninfective gastroenteritis and colitis, unspecified (principal); K29.70 Gastritis, unspecified, without bleeding; I10 Essential (primary) hypertension; K85.90 Acute pancreatitis without necrosis or infection, unspecified; E78.5 Hyperlipidemia, unspecified; R13.10 Dysphagia, unspecified; F41.9 Anxiety disorder, unspecified; E46 Unspecified protein-calorie malnutrition; Z68.1 Body mass index [BMI] 19.9 or less, adult; G89.29 Other chronic pain; F11.20 Opioid dependence, uncomplicated; K21.0 Gastro-esophageal reflux disease with esophagitis; I34.0 Nonrheumatic mitral (valve) insufficiency; R00.0 Tachycardia, unspecified; K86.1 Other chronic pancreatitis; K64.8 Other hemorrhoids; D61.818 Other pancytopenia
CPT/HCPCS: 71020; 74000; 74020; 74177; 80048; 80053; 81003; 83605; 83630; 83690; 84484; 85025; 85027; 85651; 87493; 88305; 93005; 99281; 99285; C9113; J1170; J2250; J2270; J2405; J3010; J3480; J7030; J7050; Q0167; S0030

== ENCOUNTER 2017-11-07 23:54 | Emergency (ER) | payer BC ==
[~2017-11-07] VITALS: Ht 182.9 cm; Wt 55.2 kg
[~2017-11-07 23:54] MED LIST changes: +DELZICOL400 M1 PO; +HYDROMORPHONE HC2 MG PO; +OXYCODONE HCL10 MG PO; +PROTONIX40 MG PO; +TYLENOL REGULA325 MG PO; +VALIUM5 MG PO
[2017-11-08 00:44] LABS: EOSINOPHIL (%) 0.3 % (0-5); HEMATOCRIT 34.9 % (38.0-50.0); IMMATURE GRANULOCYTE (%) 0.6 % (0.0-0.7); INSTRUMENT ABS NEUTROPHIL CT 5.7 K/uL; MCH 28.6 PG (29.0-34.0); MCHC 33.8 G/DL (30.0-36.0); MCV 84.7 FL (86-99); MEAN PLAT.VOLUME 9.7 uM^3 (9.0-12.4); MONOCYTE (%) 5.6 % (3-12); MONOCYTE COUNT 0.4 K/uL (0-0.8); NEUTROPHIL (%) 79.7 % (45-76); NEUTROPHIL COUNT 5.7 K/uL (1.8-6.4); RBC DIS.WIDTH-CV 15.6 % (11.8-14.6); RBC DIS.WIDTH-SD 48.1 % (39-53); RED BLOOD COUNT 4.12 M/uL (4.00-5.50); WHITE BLOOD COUNT 7.1 K/uL (4.1-10.2)
[2017-11-08 00:45] LABS: PLATELET COUNT 220 K/uL (156-360)
[2017-11-08 00:55] LABS: CHLORIDE 103 mEq/L (99-109); POTASSIUM 3.2 mEq/L (3.7-5.4); SODIUM 138 mEq/L (136-147)
[2017-11-08 00:57] LABS: GLUCOSE 121 mg/dL (70-99)
[2017-11-08 00:59] LABS: ANION GAP 10 MEQ/L (2-14); TOTAL BILIRUBIN 0.6 mg/dL (0.0-1.0)
[2017-11-08 01:01] LABS: ALKALINE PHOSPHATASE 143 IU/L (3-129); GFR ESTIMATE (CALCULATED) > 59 mL/min/ (58.99-99999)
[2017-11-08 01:02] LABS: UREA NITROGEN (BUN) 5 mg/dL (9-23)
[2017-11-08 01:04] LABS: LIPASE 5 U/L (1.0-51.0)
[2017-11-08 05:40] VITALS: BP 117/82
== END 2017-11-08 05:40 | disposition home or self-care (01) ==
LOC: EME 23:54
PROVIDERS: Emergency Medicine
DX: R10.84 Generalized abdominal pain (principal); R11.0 Nausea; Z90.49 Acquired absence of other specified parts of digestive tract; Z98.890 Other specified postprocedural states
CPT/HCPCS: 74022; 80053; 83690; 85025; 99281; 99285; J1170; J2270; J2405; J2765; J7030; J7050

== ENCOUNTER 2017-11-15 13:26 | Inpatient (IN) | payer BC ==
[~2017-11-15] VITALS: Ht 182.9 cm; Wt 55.9 kg
[2017-11-15 15:38] LABS: CHLORIDE 102 mEq/L (99-109); HEMATOCRIT 39.8 % (38.0-50.0); MCH 28.8 PG (29.0-34.0); MCHC 34.9 G/DL (30.0-36.0); MCV 82.6 FL (86-99); MEAN PLAT.VOLUME 9.3 uM^3 (9.0-12.4); PLATELET COUNT 203 K/uL (156-360); POTASSIUM 4.1 mEq/L (3.7-5.4); RBC DIS.WIDTH-CV 15.3 % (11.8-14.6); RBC DIS.WIDTH-SD 46.5 % (39-53); RED BLOOD COUNT 4.82 M/uL (4.00-5.50); SODIUM 135 mEq/L (136-147)
[2017-11-15 15:39] LABS: GLUCOSE 90 mg/dL (70-99)
[2017-11-15 15:40] LABS: ANION GAP 12 MEQ/L (2-14)
[2017-11-15 15:41] LABS: TOTAL BILIRUBIN 0.6 mg/dL (0.0-1.0)
[2017-11-15 15:42] LABS: ALKALINE PHOSPHATASE 148 IU/L (3-129)
[2017-11-15 15:43] LABS: GFR ESTIMATE (CALCULATED) > 59 mL/min/ (58.99-99999)
[2017-11-15 15:44] LABS: UREA NITROGEN (BUN) 17 mg/dL (9-23)
[2017-11-15 15:51] LABS: LIPASE 10 U/L (1.0-51.0)
[2017-11-15 16:15] LABS: ADD MIUA? YES; BILIRUBIN NEGATIVE; BLOOD NEGATIVE; COLOR YELLOW ((YELLOW)); GLUCOSE (STRIP) 50; KETONES 5; LEUKOCYTES NEGATIVE; NITRITE NEGATIVE; PROTEIN (STRIP) 30; SPECIFIC GRAVITY 1.042 (1.000-1.030)
[2017-11-15 16:34] LABS: BACTERIA NONE SEEN /HPF; EPITHELIAL CELLS NONE SEEN /HPF; HYALINE CASTS 0-5 /LPF; MUCUS TRACE /LPF; RED BLOOD CELLS 0-5 /HPF (0-5); UCUL ADDED? NO; WHITE BLOOD CELLS 0-5 /HPF (0-5)
[2017-11-15] MEDS ORDERED: DURAGESIC50 MCG TD (20:16)
[2017-11-15] MEDS ORDERED: OXYCODONE HCL10 MG PO (20:16)
[2017-11-15 21:40] VITALS: BP 114/74
[2017-11-16 06:59] VITALS: BP 116/64
[2017-11-16 11:21] LABS: HEMATOCRIT 35.6 % (38.0-50.0); MCH 29.7 PG (29.0-34.0); MCHC 34.8 G/DL (30.0-36.0); MCV 85.4 FL (86-99); RBC DIS.WIDTH-CV 15.9 % (11.8-14.6); RBC DIS.WIDTH-SD 48.9 % (39-53); RED BLOOD COUNT 4.17 M/uL (4.00-5.50); WHITE BLOOD COUNT 5.8 K/uL (4.1-10.2)
[2017-11-16 11:27] LABS: ANION GAP 6 MEQ/L (2-14); CHLORIDE 106 MEQ/L (99-109); GFR ESTIMATE (CALCULATED) > 59 mL/min/ (58.99-99999); GLUCOSE 73 mg/dL (70-99); MEAN PLAT.VOLUME 10.2 uM^3 (9.0-12.4); PLAT.SUFFICIENCY DECREASED; POTASSIUM 3.6 MEQ/L (3.7-5.4); SAMPLE HEMOLYSIS CHECK 0; SAMPLE ICTERIC CHECK 0; SAMPLE LIPEMIA CHECK 0; SODIUM 135 MEQ/L (136-147); UREA NITROGEN (BUN) 13 mg/dL (9-23)
[2017-11-16 11:35] VITALS: BP 113/69
[2017-11-16 11:35] LABS: PLATELET COUNT 134 K/uL (156-360)
[2017-11-16 16:35] VITALS: BP 110/70
[2017-11-16 18:54] VITALS: BP 138/78
[2017-11-16 22:33] VITALS: BP 118/82
[2017-11-17 07:39] VITALS: BP 126/88
[2017-11-17] MEDS ORDERED: EFFEXOR XR37.5 MG PO (11:34)
[2017-11-17] MEDS ORDERED: DILAUDID2 MG PO (11:37)
[2017-11-17 12:00] VITALS: BP 128/86
== END 2017-11-17 15:00 | disposition home or self-care (01) | DRG 389 ==
LOC: EME 13:26 → EDOF 18:09 → ENRESERV 18:10 → CANRESERV 18:20 → ENRESERV 18:20 → 5EAST 20:18 → EDOF 20:18 → ENRESERV 20:23 → 5EAST 21:38 → ENPENDDIS 11-17 → 5EAST 11-17 15:00
PROVIDERS: Family Medicine
DX: K56.0 Paralytic ileus (principal); Z68.1 Body mass index [BMI] 19.9 or less, adult; R64 Cachexia; F11.20 Opioid dependence, uncomplicated; E86.0 Dehydration; G89.4 Chronic pain syndrome; F33.9 Major depressive disorder, recurrent, unspecified; K21.9 Gastro-esophageal reflux disease without esophagitis; I10 Essential (primary) hypertension; F41.9 Anxiety disorder, unspecified; Z86.73 Personal history of transient ischemic attack (TIA), and cerebral infarction without residual deficits; Z90.49 Acquired absence of other specified parts of digestive tract
CPT/HCPCS: 71020; 74177; 80048; 80053; 81003; 83690; 85027; 99281; 99285; J0692; J1170; J1885; J2270; J2405; J3010; J7030; J7050; Q0167

== ENCOUNTER 2018-01-14 18:56 | Observation (INO) | payer BC ==
[~2018-01-14] VITALS: Ht 185.4 cm; Wt 59.3 kg
[~2018-01-14 18:56] MED LIST changes: +DILAUDID2 MG PO; +EFFEXOR XR37.5 MG PO
[2018-01-14 20:06] LABS: HEMATOCRIT 38.6 % (38.0-50.0); HEMOGLOBIN 13.7 G/DL (12.5-16.6); MCH 30.9 PG (29.0-34.0); MCHC 35.5 G/DL (30.0-36.0); MCV 87.1 FL (86-99); PLATELET COUNT 178 K/uL (156-360); RBC DIS.WIDTH-CV 12.7 % (11.8-14.6); RBC DIS.WIDTH-SD 40.6 % (39-53); RED BLOOD COUNT 4.43 M/uL (4.00-5.50); WHITE BLOOD COUNT 6.3 K/uL (4.1-10.2)
[2018-01-14 20:21] LABS: CHLORIDE 106 mEq/L (99-109); POTASSIUM 3.7 mEq/L (3.7-5.4); SODIUM 140 mEq/L (136-147)
[2018-01-14 20:23] LABS: GLUCOSE 138 mg/dL (70-99); TOTAL PROTEIN 7.1 g/dL (6.4-8.3)
[2018-01-14 20:25] LABS: TOTAL BILIRUBIN 0.4 mg/dL (0.0-1.0)
[2018-01-14 20:26] LABS: ALKALINE PHOSPHATASE 127 IU/L (3-129)
[2018-01-14 20:27] LABS: CREATININE 0.8 mg/dL (0.6-1.3); GFR ESTIMATE (CALCULATED) > 59 mL/min/ (58.99-99999)
[2018-01-14 20:28] LABS: AST (GOT) 29 IU/L (2-34); UREA NITROGEN (BUN) 11 mg/dL (9-23)
[2018-01-14 20:29] LABS: ALT (GPT) 87 IU/L (3-49)
[2018-01-14 20:43] LABS: APPEARANCE SL.HAZY ((CLEAR)); BILIRUBIN NEGATIVE; BLOOD NEGATIVE; COLOR YELLOW ((YELLOW)); GLUCOSE (STRIP) NEGATIVE; KETONES NEGATIVE; LEUKOCYTES NEGATIVE; NITRITE NEGATIVE; PROTEIN (STRIP) 30; SPECIFIC GRAVITY 1.026 (1.000-1.030); UROBILINOGEN 0.2 MG/DL (0.2-1.0)
[2018-01-14 20:53] LABS: BACTERIA RARE /HPF; EPITHELIAL CELLS NONE SEEN /HPF; MUCUS 1+ /LPF; RED BLOOD CELLS 0-5 /HPF (0-5); UCUL ADDED? NO; WHITE BLOOD CELLS 0-5 /HPF (0-5)
[2018-01-14 21:11] LABS: LIPASE 8 U/L (1.0-51.0)
[2018-01-14 21:16] LABS: CALCIUM OXALATE CRYSTALS 2+ /HPF
[2018-01-15] MEDS ORDERED: BENADRYL25 MG PO (01:44)
[2018-01-15] MEDS ORDERED: IBUPROFEN600 MG PO (01:52)
[2018-01-15] MEDS ORDERED: TYLENOL REGULA325 MG PO (01:54)
[2018-01-15] MEDS ORDERED: BENTYL20 MG PO (01:55)
[2018-01-15] MEDS ORDERED: ONDANSETRON ODT4 MG PO (01:56)
[2018-01-15 04:20] VITALS: BP 93/54
[2018-01-15 07:42] VITALS: BP 114/74
== END 2018-01-15 08:01 | disposition left against medical advice (07) ==
LOC: EME 18:56 → EDOF 01-15 02:06 → ENRESERV 01-15 02:07 → 5WEST 01-15 03:46
DX: R10.9 Unspecified abdominal pain (principal); R19.7 Diarrhea, unspecified; G89.4 Chronic pain syndrome; Z86.19 Personal history of other infectious and parasitic diseases; K21.9 Gastro-esophageal reflux disease without esophagitis; R11.2 Nausea with vomiting, unspecified; R50.9 Fever, unspecified; R30.0 Dysuria; Z90.49 Acquired absence of other specified parts of digestive tract; I10 Essential (primary) hypertension; Z87.442 Personal history of urinary calculi
CPT/HCPCS: 74177; 80048; 80053; 81003; 83690; 85025; 85027; 87641; 99281; 99284; G0378; J2270; J2405; J7030